=== PATIENT | female | born 1945 ===

== ENCOUNTER 2016-10-28 06:15 | Day surgery (SDC) | payer MEDICARE ==
[2016-10-10 10:11] VITALS: BMI 25.0
[2016-10-28 07:29] LABS: GFR AFRICAN-AMERICAN > 60; GFR NON-AFRICAN AMERICAN > 60
[2016-10-28 07:30] LABS: BLOOD UREA NITROGEN 25 mg/dL (7-17); CALCIUM 10.1 mg/dl (8.6-10.4)
[2016-10-28] MEDS ORDERED: Lactated Ringer's 1,000 ML IV ONE (10:05)
[2016-10-28] MEDS ORDERED: Propofol 10 mg/ml Inj (20 ML) ONE (10:06)
[2016-10-28] MEDS ORDERED: cefOXitin IV 1 gm in Dextrose 1 GM/50 ML BAG IVPB ONE (10:16)
--- NOTE | 2016-10-28 10:52 | PCM.SURG1 ---
Surgeon's Initial Post Op Note - Surgeon's Notes Surgeon: dr negron Milling Machine Tender: none Type of Anesthesia: General LMA Anesthesia Administered By: dr orozco Pre-Operative Diagnosis: 71 yr with endometrial thickening Operative Findings: see the op reoprt Post-Operative Diagnosis: same Operation Performed: myasure/d &c, hysterscopy Specimen/Specimens Removed: ecc. emc. polyp Estimated Blood Loss: EBL {In ML}: 20 Blood Products Given: N/A Drains Used: No Drains Post-Op Condition: Good Date of Surgery/Procedure: 10/28/16 Time of Surgery/Procedure: 11:00
[2016-10-28] MEDS ORDERED: HYDROmorphone 0.5 mg/0.5 ml ISec ONE (10:59)
[2016-10-28] MEDS ORDERED: Lactated Ringer's 1,000 ML IV SCH (11:00)
[2016-10-28] MEDS ORDERED: HYDROmorphone 0.5 mg/0.5 ml ISec IVP PRN (11:00)
[2016-10-28 14:55] VITALS: BP 128/57; PULSE 51; RESP 18; TEMP 98; O2SAT 100
--- NOTE | 2016-11-01 09:02 | PCM.OP ---
Operative Report - Operative Report Date of Surgery/Procedure: 10/28/16 Time of Surgery/Procedure: 11:00 Surgeon: dr negron Lastex Operator: none Anesthesia/Sedation: dr orozco Pre-Operative Diagnosis: 71 yr with endometral thickerning Post-Operative Diagnosis: same with end polyp Indication for Surgery: endometral thickening Operative Findings: end polyp 1 cm on post wall Procedure/Operation Description: after informed consent sterle spec inserted. ut 6 week size. ant lip of cervoix grasped with ten. gentle dilation done. hystersvcopy introduced. end polp seen on post wall. removed with muyasure. currtae dobe on all wall. small tissue. ecc done. tenaculum removed. pt tolerated it the procedure. no com. deficit is 200 cc Estimated Blood Loss: 20 Sponge/Instrument Count: correct Complications: none Discharge & Condition: stable
== END 2016-10-28 14:40 | disposition home or self-care (01) ==
LOC: C.SDS 06:15
PROVIDERS: ATTEND Obstetrics & Gynecology
DX: N84.0 Polyp of corpus uteri (principal)
CPT/HCPCS: 36415; 58558; 80048; 88305; J0694; J1170; J2704; J3010; J7120

== ENCOUNTER 2017-11-10 07:31 | Day surgery (SDC) | payer MEDICARE ==
[2016-10-10 10:11] VITALS: BMI 25.0
--- NOTE | 2017-11-10 10:10 | CP.SDSHP ---
Same Day Surgery H & P - History Proposed Procedure: EGD Pre-Op Diagnosis: Abdominal pain - Previous Medical/Surgical History Cardiac: Hypertension Endocrine/Metabolic: Other Comments: Hyperlipidemia, hypercalcemia Previous Surgical History: Tubal ligation, ovarian cystectomy, cardiac catheterization - Allergies Allergies: Allergies No Known Allergies Allergy (Verified 11/07/17 10:20) - Current Medications Current Medications: See reconciliation sheet - Physical Exam General Appearance: WD WN female in NAD Vital Signs: Vital Signs 11/10/17 08:09 Temperature 98.7 F Pulse Rate 51 L Respiratory 17 Rate Blood Pressure 137/73 O2 Sat by Pulse 97 Oximetry Mental Status: Alert & Oriented x3 Neuro: WNL Heart: WNL Lungs: WNL GI: WNL - {Optional Preform as Required} Abdomen: WNL - Impression Impression: Abdominal pain Pt. Evaluated Today:Candidate for Anesthesia & Procedure: Yes - Date & Time Date: 11/10/17 Time: 10:10 Short Stay Discharge - Short Stay Discharge Admitting Diagnosis/Reason for Visit: LEFT UPPER QUADRANT PAIN Disposition: HOME/ ROUTINE Referrals: Zelda Robert MD [Primary Care Provider] -
[2017-11-10 10:48] VITALS: TEMP 97.5; O2SAT 100
[2017-11-10 11:25] VITALS: BP 121/70; PULSE 49; RESP 13
== END 2017-11-10 11:28 | disposition home or self-care (01) ==
LOC: C.ENDO 07:31
PROVIDERS: ATTEND Internal Medicine Gastroenterology
DX: K29.70 Gastritis, unspecified, without bleeding (principal); R10.12 Left upper quadrant pain; K44.9 Diaphragmatic hernia without obstruction or gangrene; I10 Essential (primary) hypertension; E78.5 Hyperlipidemia, unspecified